=== PATIENT | female | born 2000 | race Two or more races ===

== ENCOUNTER → 2025-07-01 | Outpatient (CLI) | payer MEDICAID | END | disposition home or self-care (01) | LOC: LAB 07:51 | PROVIDERS: ATTEND Obstetrics & Gynecology | DX: Z34.00 Encounter for supervision of normal first pregnancy, unspecified trimester (principal); Z36.0 Encounter for antenatal screening for chromosomal anomalies; Z3A.00 Weeks of gestation of pregnancy not specified | CPT/HCPCS: 82105 ==

== ENCOUNTER 2025-07-05 02:23 | Emergency (ER) | payer MEDICAID ==
[~2025-07-05] VITALS: Ht 170.2 cm; Wt 94.5 kg
[2025-07-05 02:24] VITALS: BP 118/71; PULSE 87; RESP 18; TEMP 97.7; O2SAT 96
[2025-07-05 03:28] LABS: Hematocrit 38.9 % (36.0-46.0); Hemoglobin 13.7 g/dL (12.2-16.2); Mean Corpuscular Hemoglobin 33.4 pg (28.0-32.0); Mean Corpuscular Volume 94.6 fL (80.0-100.0); Nucleated Red Blood Cells % 0.1 %
[2025-07-05 03:44] LABS: Alanine Aminotransferase 24 U/L (7-40); Albumin 4.0 g/dL (3.2-4.8); Anion Gap 8 (5-15); BUN/Creatinine Ratio 12.2 (10.0-20.0); Bilirubin, Total 0.4 mg/dL (0.2-1.0); Blood Urea Nitrogen 9 mg/dL (9-23); Calcium 9.3 mg/dL (8.7-10.4); Carbon Dioxide 25 mmol/L (20-31); Chloride 105 mmol/L (98-107); Glucose 95 mg/dL (74-106); Potassium 3.7 mmol/L (3.5-5.1); Sodium 138 mmol/L (136-145); Total Protein 6.9 g/dL (5.7-8.2)
[2025-07-05 03:48] LABS: Alkaline Phosphatase 41 U/L (46-116)
[2025-07-05 04:53] LABS: Urine Protein, UAD Negative (Negative)
== END 2025-07-05 04:55 | disposition left against medical advice (07) ==
LOC: ER 02:27
DX: R10.32 Left lower quadrant pain (principal); Z53.21 Procedure and treatment not carried out due to patient leaving prior to being seen by health care provider
CPT/HCPCS: 36415; 80053; 81001; 85025

== ENCOUNTER 2025-09-06 07:42 | Outpatient (CLI) | payer MEDICAID | END 2025-09-06 17:00 | disposition home or self-care (01) | LOC: LAB 07:42 | PROVIDERS: ATTEND Obstetrics & Gynecology | DX: R87.9 Unspecified abnormal finding in specimens from female genital organs (principal) | CPT/HCPCS: 86850; 86870; 86880; 86900; 86905; 86906 ==

== ENCOUNTER 2025-09-19 07:38 | Outpatient (CLI) | payer MEDICAID ==
[2025-09-19 07:53] LABS: Hematocrit 39.0 % (36.0-46.0); Hemoglobin 13.6 g/dL (12.2-16.2); Mean Corpuscular Hemoglobin 33.1 pg (28.0-32.0); Mean Corpuscular Volume 95.1 fL (80.0-100.0); Nucleated Red Blood Cells % 0.0 %
== END 2025-09-19 17:00 | disposition home or self-care (01) ==
LOC: LAB 07:38
PROVIDERS: ATTEND Obstetrics & Gynecology
DX: Z34.00 Encounter for supervision of normal first pregnancy, unspecified trimester (principal); Z3A.00 Weeks of gestation of pregnancy not specified
CPT/HCPCS: 36415; 82951; 83036; 85025

== ENCOUNTER 2025-10-22 08:27 | Observation (INO) | payer MEDICAID ==
[~2025-10-22] VITALS: Ht 170.2 cm; Wt 86.2 kg
[2025-10-22] MEDS ORDERED: PREN1TAB71 OR (10:20)
[2025-10-22] MEDS ORDERED: TERBUTALINE SULFATE 1 MG/ML 1ML VIAL SC SCH (11:30)
--- NOTE | 2025-10-22 12:01 | DVH ---
BIOPHYSICAL PROFILE HISTORY: GDMA1 Comparison Study: None TECHNIQUE: Multiple real-time grayscale sonographic images through the gravid uterus of the fetus with duplex doppler color flow and M-mode spectral analysis FINDINGS: BIOPHYSICAL PROFILE: breathing score: 2 movement score: 2 tone score: 2 Quantitative LUCIANO score: 2 (LUCIANO: 10.8 cm.) Total score: 8 The cervix measures 4.4 cm Single live fetus in cephalic presentation. heart rate 146 beats per minute. No placenta previa or abruption. The placenta is fundal. IMPRESSION: 1. Biophysical profile score: 8
--- NOTE | 2025-10-24 15:19 | DVHDS2 ---
Physician Discharge Progress N Final Diagnosis: GDM 34 WKS Operations or Procedures: Operations or Procedures NST REACTIVE REVIWED,SONO Condition on Discharge: Good Disposition: Home Discharge Instructions: Diet: Consistent carbohydrate Activity: No Restrictions, As Tolerated Medications: NA Follow Up Care: Specialist: 3D Discharge Statement: "Patient was advised to return to the ER or call 911 if any headaches, dizziness, shortness of breath, chest pain, abdominal pain, bleeding, fevers, or worsening of medical condition. Patient was counseled about treatment plan, medications, possible side effects, patientverbalized understanding. All questions were answered to the best of my ability. This discharge took greater then 30 minutes in planning, reviewing documentation, counseling the patient, and discussing with other team members." Visit Coding OBGYN Date of Service: Oct 22, 2025 Billing Provider: REED BENSON DO PAYING TELLER Common Visit Codes: 88704-[id number] OBS CARE (HIGH) PAYING TELLER Procedure Codes: 30153-07- NON-STRESS TEST REED BENSON DO Oct 24, 2025 15:19
[2025-10-28] MEDS ORDERED: METF-370 PO (10:45)
== END 2025-10-22 12:29 | disposition home or self-care (01) ==
LOC: LDRP 09:51
PROVIDERS: ADMIT Obstetrics & Gynecology; ATTEND Obstetrics & Gynecology
DX: O24.419 Gestational diabetes mellitus in pregnancy, unspecified control (principal); Z3A.34 34 weeks gestation of pregnancy; Z98.890 Other specified postprocedural states
CPT/HCPCS: 59025; 76819; 81002; 82948; 82962; A4649; G0378

== ENCOUNTER 2025-10-25 11:44 | Observation (INO) | payer MEDICAID ==
[~2025-10-25 11:44] MED LIST: PREN1TAB71 OR
--- NOTE | 2025-10-25 12:49 | DVH ---
BIOPHYSICAL PROFILE HISTORY: GDMA2 Comparison Study: US BIOPHYSICAL PROFILE on DOS: 10/22/25 TECHNIQUE: Multiple real-time grayscale sonographic images through the gravid uterus of the fetus with duplex Doppler color flow and M-mode spectral analysis FINDINGS: BIOPHYSICAL PROFILE: breathing score: 2 movement score: 2 tone score: 2 Quantitative LUCIANO score: 2 (LUCIANO: 14.96 Cm.) Total score: 8 The cervix is nonvisualized Single live fetus in cephalic presentation. heart rate 137.22 beats per minute. Grade 2, fundal placenta without previa or abruption IMPRESSION: Biophysical profile score: 8
--- NOTE | 2025-10-25 14:31 | DVHDS2 ---
Physician Discharge Progress N Final Diagnosis: gdm 34wks Operations or Procedures: Operations or Procedures nst reactive reviwed,sono Condition on Discharge: Good Disposition: Home Discharge Instructions: Diet: Consistent carbohydrate Activity: No Restrictions, As Tolerated Medications: na Follow Up Care: Specialist: 3d Discharge Statement: "Patient was advised to return to the ER or call 911 if any headaches, dizziness, shortness of breath, chest pain, abdominal pain, bleeding, fevers, or worsening of medical condition. Patient was counseled about treatment plan, medications, possible side effects, patientverbalized understanding. All questions were answered to the best of my ability. This discharge took greater then 30 minutes in planning, reviewing documentation, counseling the patient, and discussing with other team members." Visit Coding OBGYN Date of Service: Oct 25, 2025 Billing Provider: REED BENSON DO HEALTH SERVICES INFORMATION SPECIALIST Common Visit Codes: [id number] OBS CARE (HIGH) HEALTH SERVICES INFORMATION SPECIALIST Procedure Codes: 03046-82- NON-STRESS TEST REED BENSON DO Oct 25, 2025 14:31
[2025-10-28] MEDS ORDERED: METF-370 PO (10:45)
== END 2025-10-25 13:22 | disposition home or self-care (01) ==
LOC: LDRP 11:44 → UNDOADMOB 11:44 → LDRP 11:53 → UNDODISOB 13:22
PROVIDERS: ADMIT Obstetrics & Gynecology; ATTEND Obstetrics & Gynecology
DX: O24.419 Gestational diabetes mellitus in pregnancy, unspecified control (principal); Z3A.34 34 weeks gestation of pregnancy; Z98.890 Other specified postprocedural states
CPT/HCPCS: 59025; 76819; 81002; 82948; 82962; A4649; G0378